=== PATIENT | male | born 1995 | race Two or more races ===

== ENCOUNTER 2025-02-02 20:27 | Inpatient (IN) | payer MEDICAID ==
[~2025-02-02] VITALS: Ht 177.8 cm; Wt 135.0 kg
--- NOTE | 2025-02-02 22:09 | ED.PDOC ---
GI ASSESSMENT HPI Comments 29 year old male presents to the ED with a chief complaint of abdominal pain onset today (02/02/25) around 15:00. Patient states around 15:00 he began experiencing epigastric pain, described as "knot" sensation as well as nausea/vomiting. PMHx colon and liver cancer, had chemo on Friday at [facility] (formerly [facility]), oncologist is Dr. Gann. Patient took Tylenol for pain, no improvement. Denies chest pain, shortness of breath, diarrhea, headache, dizziness, cough, congestion. No other symptoms or modifying factors present at this time. Chief Complaint: Abdominal Pain Time Seen by MD: 22:00 Reviewed Notes: Medications, Allergies Allergies: Coded Allergies: NO KNOWN ALLERGIES (Unverified , 02/02/25) Information Source: Patient Mode of Arrival: Ambulatory Timing: Hours Duration: Since onset Prehospital treatment: Pain Meds (tylenol) Quality: Aching, Sharp Severity: Moderate Recent: Other (chemo) Recent Hx of: Other (chemo) Pain Location: Epigastric Modifying Factors: Nothing Associated sign and symptoms: Nausea, Vomiting, Abdominal Pain Past Medical History PAST MEDICAL HISTORY: Cancer (colon and live) Surgical History: Denies all surgeries Family History Family History: Reviewed,noncontributory to illness, No family hx of Cancer, No family hx of DM, No family hx of Heart brandon, No family hx of HTN, No family hx ofKidney brandon, No family hx of Liver brandon, No family hx of Lung brandon, No family hx of Stroke Social History Smoker: Non-Smoker Alcohol: Denies ETOH Use Drugs: Denies Drug Use Lives In: Home Constitutional: denies: chills, diaphoresis, fatigue, fever, malaise, sweats, weakness, others EENTM: denies: blurred vision, double vision, ear bleeding, ear discharge, ear drainage, ear pain, ear ringing, eye pain, eye redness, hearing loss, mouth pain, mouth swelling, nasal discharge, nose bleeding, nose congestion, nose pain, photophobia, tearing, throat pain, throat swelling, voice changes, others Respiratory: denies: cough, hemoptysis, orthopnea, SOB at rest, shortness of breath, SOB with excertion, stridor, wheezing, others Cardiovascular: denies: chest pain, dizzy spells, diaphoresis, Dyspnea on exertion, edema, irregular heart beat, left arm pain, lightheadedness, palpitations, PND, syncope, others Gastrointestinal: reports: abdominal pain, nausea, vomiting; denies: abdomen distended, blood streaked bowels, constipated, diarrhea, dysphagia, difficulty swallowing, hematemesis, melena, poor appetite, poor fluid intake, rectal bleeding, rectal pain, others Genitourinary: denies: burning, dysuria, flank pain, frequency, hematuria, incontinence, penile discharge, penile sore, pain, testicle pain, testicle swelling, urgency, others Neurological: denies: dizziness, fainting, headache, left sided numbness, left sided weakness, numbness, paresthesia, pre-existing deficit, right sided numbness, right sided weakness, seizure, speech problems, tingling, tremors, weakness, others Musculoskeletal: denies: back pain, gout, joint pain, joint swelling, muscle pain, muscle stiffness, neck pain, others Integumetry: denies: bruises, change in color, change in hair/nails, dryness, laceration, lesions, lumps, rash, wounds, others Allergic/Immunocompromised: denies: Difficulty Healing, Frequent Infections, Hives, Itching, others Hematologic/Lymphatic: denies: anemia, blood clots, easy bleeding, easy bruis ing, swollen glands, others Endocrine: denies: excessive hunger, excessive sweating, excessive thirst, exc essive urination, flushing, intolerance to cold, intolerance to heat, unexplained weight gain, unexplained weight loss, others Psychiatric: denies: anxiety, bipolar disorder, depression, hopeless, panic disorder, schizophrenia, sleepless, suicidal, others All Other Systems: Reviewed and Negative Physical Exam General Appearance: No Apparent Distress, Normal HEENT: Normal ENT Inspection, Pharynx Normal, TMs Normal Neck: Full Range of Motion, Non-Tender, Normal, Normal Inspection Respiratory: Chest Non-Tender, Lungs Clear, No Accessory Muscle Use, No Respiratory Distress, Normal Breath Sounds Cardiovascular: No Edema, No JVD, No Murmur, No Gallop, Normal Peripheral Pulses, Regular Rate/Rhythm Breast Exam: Deferred Gastrointestinal: No Organomegaly, Non Tender, No Pulsatile Mass, Normal Bowel Sounds, Soft Genitalia: Deferred Pelvic: Deferred Rectal: Deferred Extremities: No calf tenderness, Normal capillary refill, Normal inspection, Normal range of motion, Non-tender, No pedal edema Musculoskeletal : Apperance: Normal Neurologic: Alert, tailer out II-XII nml as Tested, No Motor Deficits, Normal Affect, Normal Mood, No Sensory Deficits Cerebellar Function: Normal Reflexes: Normal Skin: Dry, Normal Color, Warm Lymphatic: No Adenopathy Was a procedure done? Was a procedure done?: No GI differential Dx Differential Diagnosis: Appendicitis, Cholangitis, Cholecystitis, Gastritis/PUD, Gastroenteritis, Inflammatory BD, Urolithiasis, Dehydration, Electrolyte Imbalance X-Ray, Labs, Meds, VS Vital Signs Date Time Temp Pulse Resp B/P (MAP) Pulse Ox O2 Delivery O2 Flow Rate FiO2 02/03/25 01:27 98.2 69 13 134/87 (103) 98 98.2 02/03/25 01:08 70 13 134/87 02/03/25 00:38 87 12 161/98 02/03/25 00:30 Room Air* 0 21 02/03/25 00:30 97.9 87 16 161/98 (119) 97 97.9 02/02/25 20:54 98.0 78 18 111/93 (99) 99 98.0 Lab Test 02/03/25 00:20 02/02/25 22:09 Range/Units Lactic Acid Level 3.5 *H 3.7 *H 0.4-2.0 mmol/L White Blood Count 6.0 4.4-10.8 10^3/uL Red Blood Count 5.61 4.5-5.90 10^6/uL Hemoglobin 15.4 13.5-17.5 g/dL Hematocrit 45.6 41.0-53.0 % Mean Corpuscular Volume 81.2 80.0-100.0 fL Mean Corpuscular Hemoglobin 27.4 L 28.0-32.0 pg Mean Corpuscular Hemoglobin Concent 33.7 32.0-36.0 g/dL Red Cell Distribution Width 19.0 H 11.8-14.3 % Platelet Count 307 140-450 10^3/uL Mean Platelet Volume 7.6 6.9-10.8 fL Neutrophils (%) (Auto) 83.8 H 37.0-80.0 % Lymphocytes (%) (Auto) 8.4 L 10.0-50.0 % Monocytes (%) (Auto) 7.5 0.0-12.0 % Eosinophils (%) (Auto) 0.0 0.0-7.0 % Basophils (%) (Auto) 0.3 0.0-2.0 % Neutrophils # (Auto) 5.0 1.6-8.6 10 ^3/uL Lymphocytes # (Auto) 0.5 0.4-5.4 10 ^3/uL Monocytes # (Auto) 0.4 0-1.3 10 ^3/uL Eosinophils # (Auto) 0 0-0.8 10 ^3/uL Basophils # (Auto) 0 0-0.2 10 ^3/uL Nucleated Red Blood Cells 0.1 % Sodium Level 137 136-145 mmol/L Potassium Level 3.4 L 3.5-5.1 mmol/L Chloride Level 104 98-107 mmol/L Carbon Dioxide Level 20 20-31 mmol/L Anion Gap 13 5-15 Blood Urea Nitrogen 9 9-23 mg/dL Creatinine 0.94 0.700-1.30 mg/dL Glomerular Filtration Rate Calc 112 >90 mL/min BUN/Creatinine Ratio 9.6 L 10.0-20.0 Serum Glucose 176 H 74-106 mg/dL Calcium Level 10.5 H 8.7-10.4 mg/dL Total Bilirubin 1.2 H 0.2-1.0 mg/dL Aspartate Amino Transferase (AST) 55 H 13-40 U/L Alanine Aminotransferase (ALT) 82 H 7-40 U/L Alkaline Phosphatase 140 H 46-116 U/L Total Protein 7.9 5.7-8.2 g/dL Albumin 5.0 H 3.2-4.8 g/dL Lipase 313 H 12-53 U/L Current Medications Medications (Trade) Dose Ordered Sig/Ita Route Start Time Stop Time Status Last Admin Sodium Chloride 1,000 ml @ 1,000 mls/hr Q1H ONCE IV 02/02/25 22:15 02/02/25 23:14 DC 02/03/25 00:40 Ondansetron HCl (Zofran) 4 mg ONCE ONCE IV 02/02/25 22:15 02/02/25 22:16 DC 02/03/25 00:37 Morphine Sulfate 4 mg ONCE ONCE IV 02/02/25 22:15 02/02/25 22:16 DC 02/03/25 00:38 Time of 1ST Reevaluation: 22:30 Reevaluation 1ST: Unchanged Patient Education/Counseling: Diagnosis, Treatment, Prognosis Family Education/Counseling: No Family Present Additional Information The following tests were ordered, and results were reviewed by me: CBC, CMP, LA W/ REFLEX, LIPASE, UA, CT AB PEL WITH IV CON I reviewed and agreed with the following test results read by other providers: CT AB PEL WITH IV CON I discussed treatment and results with medical personnel and: patient Comprehensive systems review obtained and negative except for what is stated in the HPI. Departure 1 Departure Time of Disposition: 02:06 (Patient presented with abdominal pain that was concerning for possible appendicits, gastritis, cholecystitis, colitis, gastroenteritis, sbo, or orther possible surgical emergency. Data: 1. I ordered and reviewed the result of at least 3 labs including a CBC, BMP, and Urinalysis. 2. I independently interpreted the following tests: CT Abdoment and Pelvis is concerning for duodenitis.Risk:This patient has a high risk of morbidity due to further diagnostic testing or treatment and may suffer from an acute abdominal process disorder. Workup reveals duodenitis and possibly worsening malignancy and patient should be admitted for further workup. and possible expert consultation. Patient is not septic we will empirically cover patient with antibiotics for possible duodenitis.) Impression: Primary Impression: Duodenitis Additional Impressions: Intractable abdominal pain Liver cancer Qualified Codes: C22.9 - Malignant neoplasm of liver, not specified as primary or secondary Colon cancer Qualified Codes: C18.9 - Malignant neoplasm of colon, unspecified Disposition: 09 ADMITTED INPATIENT Admit to: Med Surg Condition: Serious Critical Care Note Critical Care Time?: Yes Critical care comment: Intractable abdominal pain Authorized and Performed by: Marycruz Chaudhari MD Total critical care time: Approximately 38 minutes Due to a high probability of clinically significant, life threatening deterioration, the patient required my highest level of preparedness to intervene emergently and I personally spent this critical care time directly and personally managing the patient. This critical care time included obtaining a history; examining the patient; pulse oximetry; ordering and review of studies; arranging urgent treatment with development of a management plan; evaluation of patient's response to treatment; frequent reassessment; and, discussions with other providers. This critical care time was performed to assess and manage the high probability of imminent, life-threatening deterioration that could result in multi-organ failure. It was exclusive of separately billable procedures and treating other patients and teaching time. Please see my other sections and the rest of the note for further information on patient assessment and treatment. Stability Stability form required: No I personally scribed for MARYCRUZ CHAUDHARI MD ([email or web address]) on 02/02/25 at 22:09. Electronically submitted by Olimpia Rooney ([email or web address]). I personally scribed for MARYCRUZ CHAUDHARI MD ([email or web address]) on 02/02/25 at 22:17. Electronically submitted by Olimpia Rooney ([email or web address]). MARYCRUZ CHAUDHARI MD Feb 02, 2025 22:09
[2025-02-02 22:18] LABS: Basophils # (auto) 0 10 ^3/uL (0-0.2); Basophils % (auto) 0.3 % (0.0-2.0); Eosinophils # (auto) 0 10 ^3/uL (0-0.8); Hematocrit 45.6 % (41.0-53.0); Hemoglobin 15.4 g/dL (13.5-17.5); Lymphocytes # (auto) 0.5 10 ^3/uL (0.4-5.4); Lymphocytes % (auto) 8.4 % (10.0-50.0); Mean Corpuscular Hemoglobin 27.4 pg (28.0-32.0); Mean Corpuscular Hgb Conc. 33.7 g/dL (32.0-36.0); Mean Corpuscular Volume 81.2 fL (80.0-100.0); Monocytes # (auto) 0.4 10 ^3/uL (0-1.3); Monocytes % (auto) 7.5 % (0.0-12.0); Neutrophils % (auto) 83.8 % (37.0-80.0); Nucleated Red Blood Cells % 0.1 %; Platelet Count (auto) 307 10^3/uL (140-450); Red Blood Cells 5.61 10^6/uL (4.5-5.90)
[2025-02-02 22:41] LABS: Anion Gap 13 (5-15); BUN/Creatinine Ratio 9.6 (10.0-20.0); Chloride 104 mmol/L (98-107); Sodium 137 mmol/L (136-145); Total Protein 7.9 g/dL (5.7-8.2)
[2025-02-02 23:02] LABS: Alanine Aminotransferase 82 U/L (7-40); Alkaline Phosphatase 140 U/L (46-116); Aspartate Aminotransferase 55 U/L (13-40); Bilirubin, Total 1.2 mg/dL (0.2-1.0); Blood Urea Nitrogen 9 mg/dL (9-23); Calcium 10.5 mg/dL (8.7-10.4); Carbon Dioxide 20 mmol/L (20-31); Glucose 176 mg/dL (74-106); Lactic Acid w/Reflex 3.7 mmol/L (0.4-2.0); Potassium 3.4 mmol/L (3.5-5.1)
[2025-02-02 23:15] LABS: Lipase 313 U/L (12-53)
[2025-02-03] MEDS: ONDANSETRON HCL 4 MG/2 ML VIAL IV ONE ×2 (00:37→04:05)
[2025-02-03] MEDS: MORPHINE SULFATE 4 MG/ML SYR/VIAL IV ONE (00:38)
[2025-02-03] MEDS: SODIUM CHLORIDE 0.9% 1,000 ML IV ONE ×3 (00:40→05:30)
[2025-02-03] MEDS: IOHEXOL 300 MG/ML 100ML BOTTLE IJ ONE (01:17)
[2025-02-03 01:20] VITALS: PULSE 69; RESP 13; O2SAT 98
--- NOTE | 2025-02-03 01:36 | DVH ---
Exam: CT CT AB PEL WITH IV CON ONLY History: abdominal pain, colon and liver ca COMPARISON: None Technique: Multidetector spiral CT of the abdomen and pelvis was performed from lung bases to pubic s ymphysis. Intravenous contrast was administered during this examination. Portal venous imaging was obtained. Axial, coronal and sagittal multiplanar reformats were performed by the technologist on a separate workstation. Radiation Dose : 1. Abdomen/Pelvis: CTDIvol 26.3 mGy, DLP 1739 mGy*cm. CONTRAST: Type of contrast: Omnipaque 350 Contrast injected: 100 ml Findings: Lung Bases: No acute or significant lung base finding. Normal heart size. No pleural or pericardial effusion. Liver: Diffuse steatosis. Postsurgical changes are seen in the right hepatic lobe. Questionable mass is seen in the hepatic segment 4A/B which measures up to 2.8 cm. Gallbladder and Biliary Tree: Status post cholecystectomy. Spleen: Unremarkable Pancreas: The pancreas is normal in appearance without focal lesions or abnormal enhancement. Adrenal Glands: Unremarkable Kidneys: No hydronephrosis. Bladder: Unremarkable Bowel: Mild wall thickening is seen in the duodenum with adjacent fat stranding, possibly related to duodenitis. No evidence of bowel obstruction. Normal appendix is visualized in the right lower quadr ant without findings of appendicitis. Ascites: Absent Lymphadenopathy: No mesenteric, retroperitoneal or periportal lymphadenopathy. Abdominal Wall and Mesentery: Prominent fat containing ventral hernia in the midline abdomen.. Vasculature: The visualized abdominal aorta is normal in size and caliber. Abdominal and pelvic vess els demonstrate normal enhancement. Pelvic Organs: Unremarkable Musculoskeletal: No aggressive focal bony lesions, acute fractures or dislocation. IMPRESSION: 1. Mild wall thickening is seen in the duodenum with adjacent fat stranding, possibly related to duod enitis. 2. Questionable mass is seen in the hepatic segment 4A/B which measures up to 2.8 cm. Consider triple phase abdominal CT for further characterization. 3. Postoperative changes are seen in the right hepatic lobe. Radiation optimization: All CT scans at this facility use at least one of these dose optimization ruth ann hniques: automated exposure control mA and/or kV adjustment per patient size (includes targeted exam s where dose is matched to clinical indication) or iterative reconstruction.
[2025-02-03 02:22] LABS: Urine Bacteria None Seen /hpf (None Seen)
[2025-02-03 03:17] LABS: Urine Amorphous Crystal FEW /hpf (None Seen); Urine Blood Negative /uL (Negative); Urine Clarity Ex.Turbid (Clear); Urine Color Light-Brown (Yellow); Urine Protein, UAD Negative (Negative); Urine Specific Gravity 1.034 (1.001-1.035); Urine Squamous Epithelial Cell None Seen /hpf (<5); Urine Urobilinogen Normal (Negative); Urine pH 7.5 (5.0-9.0)
[2025-02-03 03:20] LABS: Urine WBC < 1 /HPF (0-3)
[2025-02-03] MEDS: CEFEPIME 2GM/50ML NS 50 ML IV ONE (04:05)
[2025-02-03] MEDS ORDERED: ACETAMINOPHEN 325 MG TAB PO PRN (04:15)
--- NOTE | 2025-02-03 04:26 | DVHHPRES ---
History of Present Illness Resident Creating Document: JOYCELYN ROSALES RESIDENT History of Present Illness Patient is a 29-year-old male with past medical history of colon and liver cancer diagnosed in 2023 s/p colectomy and liver resection in May 2024 at [facility] with Dr. Gann, who comes in due to acute intractable abdominal pain. According to the patient, yesterday he received his chemotherapy which is currently ongoing via his Port-A-Cath scheduled to end at 11:00 a.m. on 02/03/2025. Around 3:00 p.m. yesterday he started experiencing abdominal pain which was 3/10 at the time of onset and progressively worsening, he describes the pain as a not like twisting pain worsened with hiccuping without any relieving factors. Denies similar symptoms of abdominal pain before in the past. Pain is associated with nausea and vomiting. Patient has had many episodes of vomiting, he notes usually has vomiting when he receives his chemotherapy but abdominal pain is in new. On review of systems he is complaining of nausea and diarrhea, 4-5 bowel movements today. Past Medical History colon and liver cancer diagnosed in 2023 s/p colectomy and liver resection in May 2024 at [facility] with Dr. Gann Past Surgical History Colectomy, partial liver resection right hepatic lobe in May 2024 at [facility]. Past Social History Smoking: Denies Alcohol: Occasionally Drugs: Uses marijuana daily except on days when he is receiving chemotherapy Allergy: Denies Home medication: Zofran, Compazine, doxycycline, steroids Review of Systems Constitutional: No: Fever, Chills, Sweats, Weakness, Malaise, Other Eyes: No: Pain, Vision change, Conjunctivae inflammation, Eyelid inflammation, Other, Redness ENT: No: Ear pain, Ear discharge, Nose pain, Nose discharge, Nose congestion, Mouth pain, Mouth swelling, Throat pain, Throat swelling, Other Respiratory: No: Cough, Dry, Shortness of breath, SOB with excertion, Wheezing, Hemoptysis, Pleuritic Pain, Sputum, Wheezing, Other Cardiovascular: No: Chest Pain, Palpitations, Orthopnea, Paroxysmal Noc. Dyspnea, Edema, Lt Headedness, Other Gastrointestinal: Nausea, Vomiting, Abdominal Pain, Diarrhea; No: Constipation, Melena, Hematochezia, Other Genitourinary: No Dysuria, No Frequency, No Incontinence, No Hematuria, No Retention, No Other Musculoskeletal: No: other, neck pain, shoulder pain, arm pain, back pain, hand pain, leg pain, foot pain Skin: No: Rash, Lesions, Jaundice, Bruising, Other Neurological: No: Weakness, Numbness, Incoordination, Change in speech, Confusion, Seizures, Other Allergies: Coded Allergies: NO KNOWN ALLERGIES (Unverified , 02/02/25) Exam Vital Signs Vital Signs Date Time Temp Pulse Resp B/P (MAP) Pulse Ox O2 Delivery O2 Flow Rate FiO2 02/03/25 01:27 98.2 69 13 134/87 (103) 98 98.2 02/03/25 00:30 Room Air* 0 21 General Appearance: Alert, Oriented X3, Cooperative, mild distress, Other (Actively vomiting at the time of my assessment) HEENT: Atraumatic, PERRLA, EOMI, Other (Dry mucous membrane) Respiratory: Clear to auscultation, Normal air movement Cardiovascular: Regular rate, Normal S1, Normal S2, No murmurs Abdominal: Normal bowel sounds, Soft, Other (Midepigastric tenderness to pa lpation) Extremities: No edema, Normal pulses, No tenderness/swelling Skin: No significant lesion Neuro: Normal speech, Strength at 5/5 X4 ext, Sensation intact Psych/Mental Status: Mental status NL, Mood NL Labs/Xrays Labs Test 02/03/25 02:00 02/03/25 00:20 02/02/25 22:09 Range/Units Urine Color Light-brown Yellow Urine Clarity Ex.turbid Clear Urine pH 7.5 5.0-9.0 Urine Specific [place] 1.034 1.001-1.035 Urine Protein Negative Negative Urine Ketones 2+ H Negative Urine Blood Negative Negative /uL Urine Nitrite Negative Negative Urine Bilirubin Negative Negative Urine Urobilinogen Normal Negative mg/dL Urine Leukocyte Esterase Negative Negative /uL Urine RBC 1 0 - 3 /hpf Urine Microscopic WBC < 1 0-3 /HPF Urine Squamous Epithelial Cells None seen <5 /hpf Urine Amorphous Crystals Few None Seen /hpf Urine Bacteria None seen None Seen /hpf Urine Glucose 1+ H Normal mg/dL Lactic Acid Level 3.5 *H 0.4-2.0 mmol/L White Blood Count 6.0 4.4-10.8 10^3/uL Red Blood Count 5.61 4.5-5.90 10^6/uL Hemoglobin 15.4 13.5-17.5 g/dL Hematocrit 45.6 41.0-53.0 % Mean Corpuscular Volume 81.2 80.0-100.0 fL Mean Corpuscular Hemoglobin 27.4 L 28.0-32.0 pg Mean Corpuscular Hemoglobin Concent 33.7 32.0-36.0 g/dL Red Cell Distribution Width 19.0 H 11.8-14.3 % Platelet Count 307 140-450 10^3/uL Mean Platelet Volume 7.6 6.9-10.8 fL Neutrophils (%) (Auto) 83.8 H 37.0-80.0 % Lymphocytes (%) (Auto) 8.4 L 10.0-50.0 % Monocytes (%) (Auto) 7.5 0.0-12.0 % Eosinophils (%) (Auto) 0.0 0.0-7.0 % Basophils (%) (Auto) 0.3 0.0-2.0 % Neutrophils # (Auto) 5.0 1.6-8.6 10 ^3/uL Lymphocytes # (Auto) 0.5 0.4-5.4 10 ^3/uL Monocytes # (Auto) 0.4 0-1.3 10 ^3/uL Eosinophils # (Auto) 0 0-0.8 10 ^3/uL Basophils # (Auto) 0 0-0.2 10 ^3/uL Nucleated Red Blood Cells 0.1 % Sodium Level 137 136-145 mmol/L Potassium Level 3.4 L 3.5-5.1 mmol/L Chloride Level 104 98-107 mmol/L Carbon Dioxide Level 20 20-31 mmol/L Anion Gap 13 5-15 Blood Urea Nitrogen 9 9-23 mg/dL Creatinine 0.94 0.700-1.30 mg/dL Glomerular Filtration Rate Calc 112 >90 mL/min BUN/Creatinine Ratio 9.6 L 10.0-20.0 Serum Glucose 176 H 74-106 mg/dL Calcium Level 10.5 H 8.7-10.4 mg/dL Total Bilirubin 1.2 H 0.2-1.0 mg/dL Aspartate Amino Transferase (AST) 55 H 13-40 U/L Alanine Aminotransferase (ALT) 82 H 7-40 U/L Alkaline Phosphatase 140 H 46-116 U/L Total Protein 7.9 5.7-8.2 g/dL Albumin 5.0 H 3.2-4.8 g/dL Lipase 313 H 12-53 U/L Assessment/Plan Assessment/Plan Acute intractable abdominal pain Rule out pancreatitis, elevated lipase Duodenitis, infectious versus inflammatory Diarrhea possibly due to inflammation versus chemotherapy Dehydration due to above Lactic acidosis due to above Intractable nausea and vomiting - CT abdomen pelvis: Mild wall thickening is seen in the duodenum with adjacent fat stranding, possibly related to duodenitis. Questionable mass is seen in the hepatic segment 4A/B which measures up to 2.8 cm. Consider triple phase abdominal CT for further characterization. Postoperative changes are seen in the right hepatic lobe. - ceftriaxone, IV metronidazole - IV Zofran as needed - NPO - IV NS 1 L bolus x3 - stool occult blood, stool bacterial culture, stool WBC, stool C diff History of colon and liver cancer s/p colectomy and liver resection Immunocompromised, currently on chemotherapy Possible hepatic mass on CT abdomen pelvis Receiving chemotherapy via Port-A-Cath, scheduled to end at 11:00 a.m. on 02/03/2025 - monitor Marijuana use Obesity, class 3 - counseled PUD prophylaxis: protonix 40mg DVT prophylaxis: Levonox 40mg Goals of care: Full code, discussed for >16 minutes on 02/03/2025 Plan discussed with patient Plan discussed with Dr. Clark Plan discussed with: Patient, Other (RN) My Orders Orders - JOYCELYN ROSALES RESIDENT Procedure Category Date Status Time Electrocardigram EKG 02/03/25 Logged 03:39 Admit ADMIT 02/03/25 Verified 04:14 Allergies SILVIA 02/03/25 Verified 04:14 Code Status CODE 02/03/25 Verified 04:14 Acetaminophen Tablet PHA 02/03/25 Verified (Tylenol Tablet) 04:15 Ondansetron Hcl PHA 02/03/25 Verified (Zofran) 04:15 Enoxaparin Sodium PHA 02/03/25 Verified (Lovenox) 10:00 Npo (Nothing By DIET 02/03/25 Verified Mouth) Diet Breakfast Condition: Unstable SILVIA 02/03/25 Verified 04:14 Notify Md Of Changes SILVIA 02/03/25 Verified From Base 04:14 Ceftriaxone Ivpb PHA 02/03/25 Verified Rocephin 09:00 Ceftriaxone Ivpb PHA 5/1/25 Verified Rocephin 04:15 Date of Service: February 03, 2025 Billing Provider: LEONIDAS CLARK MD Common Visit Codes: [id number] INP/OBS CARE (HIGH) JOYCELYN ROSALES RESIDENT February 03, 2025 04:26
--- NOTE | 2025-02-03 04:39 | ECG ---
[facility] Test Date: 2025-02-03 Test Time: 04:32:02 Pat Name: CARI HERRON Department: ED Room: [address] [place] [address] A Gender: M Airline Captain: MICHELLE : 1995 Requested By: JOYCELYN ROSALES Order Number: [id number] Reading MD: Nikita Varela Measurements Intervals [place] Rate: 91 P: 40 KS: 160 QRS: 72 QRSD: 102 T: 55 QT: 378 QTc: 466 Interpretive Statements Sinus rhythm Borderline ST elevation, anterolateral leads Electronically Signed On 02-03-2025 8:38:37 PDT by Nikita Varela Please click the below link to view image of tracing.
[2025-02-03 05:19] LABS: Basophils # (auto) 0 10 ^3/uL (0-0.2); Basophils % (auto) 0.2 % (0.0-2.0); Eosinophils # (auto) 0 10 ^3/uL (0-0.8); Hematocrit 40.2 % (41.0-53.0); Hemoglobin 13.8 g/dL (13.5-17.5); Lymphocytes # (auto) 0.6 10 ^3/uL (0.4-5.4); Lymphocytes % (auto) 9.1 % (10.0-50.0); Mean Corpuscular Hemoglobin 27.3 pg (28.0-32.0); Mean Corpuscular Hgb Conc. 34.2 g/dL (32.0-36.0); Mean Corpuscular Volume 79.9 fL (80.0-100.0); Monocytes # (auto) 0.6 10 ^3/uL (0-1.3); Monocytes % (auto) 8.7 % (0.0-12.0); Neutrophils # (auto) 5.2 10 ^3/uL (1.6-8.6); Platelet Count (auto) 266 10^3/uL (140-450); Red Blood Cells 5.04 10^6/uL (4.5-5.90); Red Cell Distribution Width 18.8 % (11.8-14.3); White Blood Cell 6.3 10^3/uL (4.4-10.8)
[2025-02-03 05:20] LABS: Lactic Acid w/Reflex 3.2 mmol/L (0.4-2.0)
--- NOTE | 2025-02-03 05:53 | DVH ---
CHEST RADIOGRAPH Indication: cough Technique: Single frontal view of the chest was obtained Comparison: None FINDINGS: Lines and Tubes: There is a right infusion catheter with its tip terminating in the superior cavoatri al junction. Lungs: No focal consolidation. Pleura: No effusion. No pneumothorax. Cardiomediastinal contours: Unremarkable Bones: No acute osseous abnormality. IMPRESSION: 1. No acute cardiopulmonary disease.
[2025-02-03 06:05] LABS: COVID19 ANTIGEN SOFIA FIA NEGATIVE (NEGATIVE)
[2025-02-03 06:06] LABS: Rapid Influenza A Negative (Negative); Rapid Influenza B Negative (Negative)
[2025-02-03] MEDS: PROCHLORPERAZINE EDISYLATE 5 MG/ML 2ML VIAL IV ONE (06:11)
[2025-02-03 06:16] LABS: Albumin 4.3 g/dL (3.2-4.8); Anion Gap 10 (5-15); BUN/Creatinine Ratio 10.8 (10.0-20.0); Calcium 9.1 mg/dL (8.7-10.4); Carbon Dioxide 22 mmol/L (20-31); Potassium 3.7 mmol/L (3.5-5.1); Sodium 139 mmol/L (136-145); Total Protein 6.7 g/dL (5.7-8.2)
[2025-02-03 06:17] LABS: Bilirubin, Total 0.9 mg/dL (0.2-1.0)
[2025-02-03 06:18] LABS: Alanine Aminotransferase 71 U/L (7-40); Alkaline Phosphatase 118 U/L (46-116); Aspartate Aminotransferase 46 U/L (13-40); Blood Urea Nitrogen 8 mg/dL (9-23); Chloride 107 mmol/L (98-107); Glucose 153 mg/dL (74-106)
[2025-02-03] MEDS: cefTRIAXone 1GM/50ML D5W 50 ML IV ONE (07:58)
[2025-02-03] MEDS: metroNIDAZOLE 500MG/100ML 100 ML IV ONE (07:58)
[2025-02-03] MEDS ORDERED: cefTRIAXone 1GM/50ML D5W 50 ML IV ONE (08:00)
[2025-02-03] MEDS: cefTRIAXone 1GM/50ML D5W 50 ML IV SCH (08:18)
[2025-02-03] MEDS: VANCOMYCIN 1GM/200ML PM 200 ML IV ONE (08:26)
[2025-02-03] MEDS ORDERED: VANCOMYCIN 1GM/200ML PM 200 ML IV ONE (09:00)
[2025-02-03] MEDS ORDERED: metroNIDAZOLE 500MG/100ML 100 ML IV ONE (10:00)
[2025-02-03] MEDS: ENOXAPARIN SOD 40 MG/0.4 ML SYRINGE SC SCH (10:33)
[2025-02-03] MEDS: PANTOPRAZOLE 40 MG/10 ML VIAL INJ IV SCH (10:33)
--- NOTE | 2025-02-03 12:24 | DVHPNRES ---
Progress Note Date Seen: February 03, 2025 Resident Creating Document: LITZY BERRY RESIDENT Has the PT tested + for MRSA If YES, has PT been informed?: No Medical Necessity Reason Pt with a Central, PICC or Fol: No Medical Necessity Reason History of Present Illness Patient is a 29-year-old male with past medical history of colon and liver cancer diagnosed in 2023 s/p colectomy and liver resection in May [address] [facility] with [address] Gann, who comes in due to acute intractable abdominal pain. According to the patient, yesterday he received his chemotherapy which is currently ongoing via his Port-A-Cath scheduled to end at 11:00 a.m. on 02/03/2025. Around 3:00 p.m. yesterday he started experiencing abdominal pain which was 3/10 at the time of onset and progressively worsening, he describes the pain as a not like twisting pain worsened with hiccuping without any relieving factors. Denies similar symptoms of abdominal pain before in the past. Pain is associated with nausea and vomiting. Patient has had many episodes of vomiting, he notes usually has vomiting when he receives his chemotherapy but abdominal pain is in new. On review of systems he is complaining of nausea and diarrhea, 4-5 bowel movements today. Past Medical History: colon and liver cancer diagnosed in 2023 s/p colectomy and liver resection in May [address] [facility] with [address] Gann Past Surgical History: Colectomy, partial liver resection right hepatic lobe in May 2024 at [facility]. Past Social History: Smoking: Denies, Alcohol: Occasionally,Drugs: Uses marijuana daily except on days when he is receiving chemotherapy Allergy: Denies Home medication: Zofran, Compazine, doxycycline, steroids PN: Further notes from the patient's medical records reads " he has ongoing stage IV left sided colon adenocarcinoma with metastasis to the liver, He underwent colonoscopy on 11/11/2023 due to abdominal pain and was found to have a partially circumferential, large fungating, friable ulcerating mass proximal to the rectosigmoid. Patient was transferred to [facility] and under went NAC FOLFOX from 12/2023-07/29/2024. On 05/07/2024 he had hepatectomy, cholecystectomy pressure colectomy. The patient was initiated on a surveillance unfortunately abdominal abdominopelvic scan on September revealed interval development of numerous hepatic mass metastasis the patient was then re- initiated on FOLFIRI ( leucovorin calcium (folinic acid), fluorouracil, and irinotecan hydrochloride) on 10/19/2024. His oncology and surgical team are considering surgery, for the enlarging hepatic masses. However, they are concerned about his weight. He has been advised to loss some weight prior to the surgery. He is currently on cycle 6 of FOLFIRI/Panitumumab".Patient mentioned that he breakout in rashes on his face when he uses the doxycycline. Patient presented to the ED yesterday due to intractable abdominal pain associated nausea and vomiting making it difficult for him to keep anything down. Patient described the pain as a twisting knob that progressively became worse without any relieving factors. Patient is currently receiving chemotherapy via Port-A-Cath. He denies fever, chills, shortness of breath. His abdominal symptoms could be due to the steroid he is taking he can cause gastric irritation, the chemotherapy that he is currently on, or the doxycycline which can cause GI irritation. His CT abdomen revealed mild wall thickening is seen in the duodenum with adjacent fat stranding, possibly related to duodenitis. Subjective Review of Systems Constitutional: Denies fever no chills no feeling of malaise, facial acne HEENT: Denies headache, ear pain, ear discharges, conjunctivitis, nasal discharge throat pain Cardiovascular: Denies chest pain, palpitation, orthopnea, PND, or pedal edema Respiratory: Denies shortness of breath, cough cough, sputum production, hemoptysis, GI: abdominal pain, nausea, vomiting; Denies diarrhea, hematemesis, hematochezia, : Denies frequency, urgency, hematuria, Endocrine: Denies unintentional weight gain or weight loss, feeling of hot flashes, Carrillo: Denies easy bruising, bleeding disorders, epistaxis Musculoskeletal: Denies joint pains, muscle aches Psych: No evidence of depression, pati, suicidal ideation Objective vital signs Vital Sign Date Time Temp Pulse Resp B/P (MAP) Pulse Ox O2 Delivery O2 Flow Rate FiO2 02/03/25 10:30 98.7 70 21 118/66 (83) 91 98.7 02/03/25 10:22 Room Air* 0 21 Total Intake and Output 02/02/25 02/02/25 02/03/25 15:00 23:00 07:00 Intake Total 3025.0 ml Output Total 1400 ml Balance 1625.0 ml medications Current Medications Medications Dose Ordered Sig/Ita Route Start Time Stop Time Status Last Admin Dose Admin Acetaminophen 325 mg Q4HP PRN PO 02/03/25 04:15 Ondansetron HCl 4 mg Q4HP PRN IV 02/03/25 04:15 Enoxaparin Sodium 40 mg DAILY SC 02/03/25 10:00 02/03/25 10:33 40 MG Ceftriaxone Sodium 50 ml @ 100 mls/hr DAILY@09 IV 02/03/25 09:00 Metronidazole 100 ml @ 100 mls/hr Q8HR IV 02/03/25 14:00 Pantoprazole Sodium 40 mg DAILY IV 02/03/25 10:00 02/03/25 10:33 40 MG Examination General Appearance: Alert, Oriented X3, Cooperative, Mild acute distress, Obesity, rashes on his face HEENT: Atraumatic, PERRLA, EOMI, Mucous membrane moist/pink Respiratory: Clear to auscultation, Normal air movement Cardiovascular: Regular rate, Normal S1, Normal S2, No murmurs, no chest wall tenderness Abdominal: Distention from obesity, tenderness, bowel sounds present, no scars noted Extremities: No clubbing, No cyanosis, No edema, Normal pulses, No tenderness/swelling Skin: No rashes, No breakdown, No significant lesion Neuro: Normal gait, Normal speech, Strength at 5/5 X4 ext, Normal tone, Sensation intact, Cranial nerves 3-12 NL, Reflexes 2+ Psych/Mental Status: Mental status NL, Mood NL laboratory and microbiology Laboratory Tests 02/03/25 04:57 02/03/25 04:30 Test 02/03/25 04:30 Range/Units Serum Glucose 153 H 74-106 mg/dL Problem List/Assessment/Plan Problem List/Assessment/Plan Assessment/Plan Acute intractable abdominal pain -->likely due to chronic steroid use -->could be due to chemotherapy side effects --> likely doxycycline --> CT abdomen pelvis: Mild wall thickening is seen in the duodenum with adjacent fat stranding, possibly related to duodenitis --> Pepcid, maalox Acne --> facial rash --> Doxycycline Duodenitis, infectious versus inflammatory --> CT abdomen pelvis: Mild wall thickening is seen in the duodenum with adjacent fat stranding, possibly related to duodenitis --> Ceftriaxone, IV metronidazole --> Clear liquid Chronic pancreatitis --> Elevated lipase --> No abdominal tenderness of palpation Dehydration due to above due to nausea and vomiting --> fluid 500ml --> Lactic acidosis due to above --> IV Zofran as needed --> IV NS 1 L bolus x3 Obesity, class 3 --> BMI: 43 --> counseled on weight loss Stage IV left sided colon adenocarcinoma with metastasis to the liver --> Immunocompromised --> currently on chemotherapy ( FOLFIRI), via Port-A-Cath, stopped infusion at 11;00AM today --> Follows up with oncologist at [facility] Rule out C.diff --> stool occult blood, stool bacterial culture, stool WBC, stool C diff History of colon and liver cancer s/p colectomy and liver resection Possible hepatic mass on CT abdomen pelvis Marijuana use Goal of care discussed for 16 minutes. Full code Case and plan discussed + Dr. Espino Plan discussed with: Patient Date of Service: February 03, 2025 Billing Provider: JAQUELIN ESPINO MD Common Visit Codes: [id number] INP/OBS CARE(HIGH) LITZY BERRY RESIDENT February 03, 2025 12:24 JAQUELIN ESPINO MD February 04, 2025 19:24
[2025-02-03] MEDS: SODIUM CHLORIDE 0.9% 500 ML IV SCH (12:41)
[2025-02-03] MEDS: FAMOTIDINE (10MG/ML) 2ML VL IV ONE (12:43)
[2025-02-03] MEDS: metroNIDAZOLE 500MG/100ML 100 ML IV SCH (14:33)
[2025-02-03 16:41] VITALS: BP 127/74; PULSE 73; RESP 20; RESP 73; TEMP 97.8; O2SAT 94; O2SAT 96; O2SAT 98
[2025-02-03] MEDS ORDERED: MAALOX PLUS or MAALOX 30 ML PO PRN (19:15)
[2025-02-03 20:00] VITALS: PULSE 64; RESP 18
[2025-02-03 21:00] VITALS: BP 117/71; PULSE 64; TEMP 98
[2025-02-03] MEDS: FAMOTIDINE (10MG/ML) 2ML VL IV SCH (21:14)
[2025-02-03] MEDS: MAALOX PLUS or MAALOX 30 ML PO ONE (21:15)
[2025-02-04] MEDS: ONDANSETRON HCL 4 MG/2 ML VIAL IV PRN (00:36)
[2025-02-04 05:00] VITALS: BP 117/59; PULSE 74; RESP 17; O2SAT 97
[2025-02-04 06:59] LABS: Chloride 105 mmol/L (98-107); Sodium 140 mmol/L (136-145)
[2025-02-04 07:00] LABS: Anion Gap 9 (5-15); Carbon Dioxide 26 mmol/L (20-31)
[2025-02-04 07:01] LABS: Calcium 9.6 mg/dL (8.7-10.4)
[2025-02-04 07:05] LABS: BUN/Creatinine Ratio 8.4 (10.0-20.0)
[2025-02-04 07:07] LABS: Blood Urea Nitrogen 7 mg/dL (9-23); Glucose 111 mg/dL (74-106); Potassium 2.9 mmol/L (3.5-5.1)
[2025-02-04 08:00] VITALS: PULSE 95; RESP 18; O2SAT 100
[2025-02-04 09:00] VITALS: BP 116/76; PULSE 95; RESP 18; TEMP 98.1; O2SAT 100
[2025-02-04] MEDS: POTASSIUM CHL 20MEQ/50ML 50 ML IV SCH (11:39)
[2025-02-04] MEDS: POTASSIUM CHLORIDE 60 MEQ, LIDOCAINE 1% (LOCAL ANESTH.) 6 ML in SODIUM CHL 0.9% 500 ML IV ONE (12:15)
[2025-02-04 13:00] VITALS: BP 124/77; PULSE 86; RESP 16; TEMP 97.5; O2SAT 99
[2025-02-04 17:00] VITALS: BP 109/70; PULSE 97; RESP 17; TEMP 98.3; O2SAT 98
[2025-02-04 18:31] VITALS: BP 116/76; PULSE 95; RESP 18; TEMP 98.1; O2SAT 100
--- NOTE | 2025-02-04 18:31 | DVHDSRES ---
Discharge Summary Date of Admission Resident Creating Document: VIKTORIALITZY SHIPMAN RESIDENT February 03, 2025 at 04:14 Date of Discharge: February 04, 2025 Admitting Diagnosis Intractable nausea and vomiting Labs/Diagnostic Data: PATIENT: CARI HERRONT: [id number] UNIT: [id number] : 1995 LOC: OVERFLOW ROOM / BED: [facility] / A AGE / SEX: 29 / M ADM STATUS: ADM IN SERVICE [id number] ORDERING PHYSICIAN: JOYCELYN ROSALES PROCEDURE(s): CXR1 - CHEST XRAY 1 VIEW REASON: cough ORDER NUMBER(s): [id number], ACCESSION NUMBER(s): [id number] CHEST RADIOGRAPH Indication: cough Technique: Single frontal view of the chest was obtained Comparison: None FINDINGS: Lines and Tubes: There is a right infusion catheter with its tip terminating in the superior cavoatrial junction. Lungs: No focal consolidation. Pleura: No effusion. No pneumothorax. Cardiomediastinal contours: Unremarkable Bones: No acute osseous abnormality. IMPRESSION: 1. No acute cardiopulmonary disease. ATED BY: JAIRON CHERY MD DICTATED DATE/TIME: 02/03/25 0550 PATIENT: CARI HERRONT: [id number] UNIT: [id number] : 1995 LOC: ER ROOM / BED: / AGE / SEX: 29 / M ADM STATUS: REG ER SERVICE [id number] ORDERING PHYSICIAN: MARYCRUZ CEBALLOS MD PROCEDURE(s): ABPLIV - CT AB PEL WITH IV CON ONLY REASON: abdominal pain, colon and liver ca ORDER NUMBER(s): [id number], ACCESSION NUMBER(s): [id number] Exam: CT CT AB PEL WITH IV CON ONLY History: abdominal pain, colon and liver ca COMPARISON: None Technique: Multidetector spiral CT of the abdomen and pelvis was performed from lung bases to pubic symphysis. Intravenous contrast was administered during this examination. Portal venous imaging was obtained. Axial, coronal and sagittal multiplanar reformats were performed by the technologist on a separate workstation. Radiation Dose : 1. Abdomen/Pelvis: CTDIvol 26.3 mGy, DLP 1739 mGy*cm. CONTRAST: Type of contrast: Omnipaque 350 Contrast injected: 100 ml Findings: Lung Bases: No acute or significant lung base finding. Normal heart size. No pleural or pericardial effusion. Liver: Diffuse steatosis. Postsurgical changes are seen in the right hepatic lobe. Questionable mass is seen in the hepatic segment 4A/B which measures up to 2.8 cm. Gallbladder and Biliary Tree: Status post cholecystectomy. Spleen: Unremarkable Pancreas: The pancreas is normal in appearance without focal lesions or abnormal enhancement. Adrenal Glands: Unremarkable Kidneys: No hydronephrosis. Bladder: Unremarkable Bowel: Mild wall thickening is seen in the duodenum with adjacent fat stranding, possibly related to duodenitis. No evidence of bowel obstruction. Normal appendix is visualized in the right lower quadrant without findings of appendicitis. Ascites: Absent Lymphadenopathy: No mesenteric, retroperitoneal or periportal lymphadenopathy. Abdominal Wall and Mesentery: Prominent fat containing ventral hernia in the midline abdomen.. Vasculature: The visualized abdominal aorta is normal in size and caliber. Abdominal and pelvic vessels demonstrate normal enhancement. Pelvic Organs: Unremarkable Musculoskeletal: No aggressive focal bony lesions, acute fractures or dislocation. IMPRESSION: 1. Mild wall thickening is seen in the duodenum with adjacent fat stranding, possibly related to duodenitis. 2. Questionable mass is seen in the hepatic segment 4A/B which measures up to 2.8 cm. Consider triple phase abdominal CT for further characterization. 3. Postoperative changes are seen in the right hepatic lobe. Radiation optimization: All CT scans at this facility use at least one of these dose optimization techniques: automated exposure control mA and/or kV adjustment per patient size (includes targeted exams where dose is matched to clinical indication) or iterative reconstruction. ATED BY: TEOFILO GODINEZ MD DICTATED DATE/TIME: 02/03/25 0134 Laboratory Results Test 02/04/25 17:13 02/04/25 05:30 02/04/25 05:05 02/03/25 19:59 Potassium Level 3.8 mmol/L (3.5-5.1) Stool Occult Blood Negative (Negative) Stool Occult Blood Sample #3 (Negative) Stool for White Cells None seen Sodium Level 140 mmol/L (136-145) Chloride Level 105 mmol/L (98-107) Carbon Dioxide Level 26 mmol/L (20-31) Anion Gap 9 (5-15) Blood Urea Nitrogen 7 mg/dL (9-23) Creatinine 0.83 mg/dL (0.700-1.30) Glomerular Filtration Rate Calc 121 mL/min (>90) BUN/Creatinine Ratio 8.4 (10.0-20.0) Serum Glucose 111 mg/dL (74-106) Calcium Level 9.6 mg/dL (8.7-10.4) Lactic Acid Level 1.7 mmol/L (0.4-2.0) Test 02/03/25 05:01 02/03/25 04:57 02/03/25 04:30 02/03/25 02:00 Influenza Type A Antigen Negative (Negative) Influenza Type B Antigen Negative (Negative) SARS-CoV-2 Antigen (Rapid) Negative (NEGATIVE) White Blood Count 6.3 10^3/uL (4.4-10.8) Red Blood Count 5.04 10^6/uL (4.5-5.90) Hemoglobin 13.8 g/dL (13.5-17.5) Hematocrit 40.2 % (41.0-53.0) Mean Corpuscular Volume 79.9 fL (80.0-100.0) Mean Corpuscular Hemoglobin 27.3 pg (28.0-32.0) Mean Corpuscular Hemoglobin Concent 34.2 g/dL (32.0-36.0) Red Cell Distribution Width 18.8 % (11.8-14.3) Platelet Count 266 10^3/uL (140-450) Mean Platelet Volume 7.7 fL (6.9-10.8) Neutrophils (%) (Auto) 82.0 % (37.0-80.0) Lymphocytes (%) (Auto) 9.1 % (10.0-50.0) Monocytes (%) (Auto) 8.7 % (0.0-12.0) Eosinophils (%) (Auto) 0.0 % (0.0-7.0) Basophils (%) (Auto) 0.2 % (0.0-2.0) Neutrophils # (Auto) 5.2 10 ^3/uL (1.6-8.6) Lymphocytes # (Auto) 0.6 10 ^3/uL (0.4-5.4) Monocytes # (Auto) 0.6 10 ^3/uL (0-1.3) Eosinophils # (Auto) 0 10 ^3/uL (0-0.8) Basophils # (Auto) 0 10 ^3/uL (0-0.2) Nucleated Red Blood Cells 0.0 % Total Bilirubin 0.9 mg/dL (0.2-1.0) Aspartate Amino Transferase (AST) 46 U/L (13-40) Alanine Aminotransferase (ALT) 71 U/L (7-40) Alkaline Phosphatase 118 U/L (46-116) Total Protein 6.7 g/dL (5.7-8.2) Albumin 4.3 g/dL (3.2-4.8) Urine Color Light-brown (Yellow) Urine Clarity Ex.turbid (Clear) Urine pH 7.5 (5.0-9.0) Urine Specific [place] 1.034 (1.001-1.035) Urine Protein Negative (Negative) Urine Ketones 2+ (Negative) Urine Blood Negative /uL (Negative) Urine Nitrite Negative (Negative) Urine Bilirubin Negative (Negative) Urine Urobilinogen Normal mg/dL (Negative) Urine Leukocyte Esterase Negative /uL (Negative) Urine RBC 1 /hpf (0 - 3) Urine Microscopic WBC < 1 /HPF (0-3) Urine Squamous Epithelial Cells None seen /hpf (<5) Urine Amorphous Crystals Few /hpf (None Seen) Urine Bacteria None seen /hpf (None Seen) Urine Glucose 1+ mg/dL (Normal) Test 02/02/25 22:09 Lipase 313 U/L (12-53) Other Laboratory Tests 02/04/25 17:13 02/04/25 05:05 02/03/25 04:57 Brief Hx & Hospital Course: History of Present Illness Patient is a 29-year-old male with past medical history of colon and liver cancer diagnosed in 2023 s/p colectomy and liver resection in May 2024 at [facility] with Dr. Gann, who comes in due to acute intractable abdominal pain. According to the patient, yesterday he received his chemotherapy which is currently ongoing via his Port-A-Cath scheduled to end at 11:00 a.m. on 02/03/2025. Around 3:00 p.m. yesterday he started experiencing abdominal pain which was 3/10 at the time of onset and progressively worsening, he describes the pain as a not like twisting pain worsened with hiccuping without any relieving factors. Denies similar symptoms of abdominal pain before in the past. Pain is associated with nausea and vomiting. Patient has had many episodes of vomiting, he notes usually has vomiting when he receives his chemotherapy but abdominal pain is in new. On review of systems he is complaining of nausea and diarrhea, 4-5 bowel movements today. Past Medical History: colon and liver cancer diagnosed in 2023 s/p colectomy and liver resection in May 2024 at [facility] with Dr. Gann Past Surgical History: Colectomy, partial liver resection right hepatic lobe in May 2024 at [facility]. Past Social History: Smoking: Denies, Alcohol: Occasionally,Drugs: Uses marijuana daily except on days when he is receiving chemotherapy Allergy: Denies Home medication: Zofran, Compazine, doxycycline, steroids Brief Hospital course Patient came into the ED due to intractable abdominal pains. Patient described the pain as a twisting knob that progressively became worse without any relieving factors. Patient is currently receiving chemotherapy via Port-A-Cath. He denies fever, chills, shortness of breath. His abdominal symptoms could be due to the steroid he is taking he can cause gastric irritation, the chemotherapy that he is currently on, or the doxycycline which can cause GI irritation. His CT abdomen revealed mild wall thickening is seen in the duodenum with adjacent fat stranding, possibly related to duodenitis. Of note,Patient has has stage IV left sided colon adenocarcinoma with metastasis to the liver, He underwent colonoscopy on 11/11/2023 due to abdominal pain and was found to have a partially circumferential, large fungating, friable ulcerating mass proximal to the rectosigmoid. Patient was transferred to [facility] and underwent NAC FOLFOX from 12/2023-07/29/2024. On 05/07/2024 he had hepatectomy, cholecystectomy pressure colectomy. The patient was initiated on a surveillance, unfortunately abdominal abdominopelvic scan on September 16, 2024 revealed interval development of numerous hepatic mass metastasis the patient was then re-initiated on FOLFIRI ( leucovorin calcium (folinic acid), fluorouracil, and irinotecan hydrochloride) on 10/19/2024. He is currently on cycle 6 of FOLFIRI/Panitumumab". Patient mentioned that he breakout in rashes on his face when he uses the doxycycline. His GI symptoms could also be due to medications side effects. Today his was low at 2.9. This was replaced on currently is a 3.8. Patient mentioned that he is stable to be discharged we will follow with the saw the patient home to follow up with his PCP and also with the oncologist. Review of Systems Constitutional: Denies fever no chills no feeling of malaise, facial acne HEENT: Denies headache, ear pain, ear discharges, conjunctivitis, nasal discharge throat pain Cardiovascular: Denies chest pain, palpitation, orthopnea, PND, or pedal edema Respiratory: Denies shortness of breath, cough cough, sputum production, hemoptysis, GI: abdominal pain, nausea, vomiting; Denies diarrhea, hematemesis, hematochezia, : Denies frequency, urgency, hematuria, Endocrine: Denies unintentional weight gain or weight loss, feeling of hot flashes, Carrillo: Denies easy bruising, bleeding disorders, epistaxis Musculoskeletal: Denies joint pains, muscle aches Psych: No evidence of depression, pati, suicidal ideation Examination General Appearance: Alert, Oriented X3, Cooperative,Obesity, rashes on his face HEENT: Atraumatic, PERRLA, EOMI, Mucous membrane moist/pink Respiratory: Clear to auscultation, Normal air movement Cardiovascular: Regular rate, Normal S1, Normal S2, No murmurs, no chest wall tenderness Abdominal: Distention from obesity, tenderness, bowel sounds present, no scars noted Extremities: No clubbing, No cyanosis, No edema, Normal pulses, No tenderness/swelling Skin: No rashes, No breakdown, No significant lesion Neuro: Normal gait, Normal speech, Strength at 5/5 X4 ext, Normal tone, Sensation intact, Cranial nerves 3-12 NL, Reflexes 2+ Psych/Mental Status: Mental status NL, Mood NL Diagnoses Acute intractable abdominal pain Acne, facial rash Duodenitis, infectious versus inflammatory Chronic pancreatitis Dehydration due to above due to nausea and vomiting Obesity, class 3, BMI: 43 Stage IV left sided colon adenocarcinoma with metastasis to the liver Immunocompromised History of colon and liver cancer s/p colectomy and liver resection Possible hepatic mass on CT abdomen pelvis Marijuana use Discharge plan Home in stable condition Encouraged adequate hydration follow up at the Discharge clinic in 7 days follow up pcp and oncology Discharge plans discussed with Dr. Tim Condition at Discharge: Good Final Diagnosis/Problems List Acute intractable abdominal pain likely to medication side effects Acne,facial rash Duodenitis, infectious versus inflammatory Chronic pancreatitis Dehydration due to above due to nausea and vomiting Obesity, class 3, BMI: 43 Stage IV left sided colon adenocarcinoma with metastasis to the liver Immunocompromised History of colon and liver cancer s/p colectomy and liver resection Possible hepatic mass on CT abdomen pelvis Marijuana use Discharge Disposition: Home Discharge Instruct/Medications Diet: Regular Activity: No Restrictions, As Tolerated Follow Up/Referral: 7 days Medications: home medicatios Discharge Statement: "Patient was advised to return to the ER or call 911 if any headaches, dizziness, shortness of breath, chest pain, abdominal pain, bleeding, fevers, or worsening of medical condition. Patient was counseled about treatment plan, medications, possible side effects, patientverbalized understanding. All questions were answered to the best of my ability. This discharge took greater then 30 minutes in planning, reviewing documentation, counseling the patient, and discussing with other team members." ASSESSMENT ASSESSMENT Assessment Acute intractable abdominal pain likely to medication side effects Acne,facial rash Duodenitis, infectious versus inflammatory Chronic pancreatitis Dehydration due to above due to nausea and vomiting Obesity, class 3, BMI: 43 Stage IV left sided colon adenocarcinoma with metastasis to the liver Immunocompromised History of colon and liver cancer s/p colectomy and liver resection Possible hepatic mass on CT abdomen pelvis Marijuana use Date of Service: February 04, 2025 Billing Provider: JAQUELIN TIM MD Common Visit Codes: [id number] DISCH DAY >30min LITZY BERRY February 04, 2025 18:31 JAQUELIN TIM MD February 04, 2025 19:34
== END 2025-02-04 18:55 | disposition home or self-care (01) | DRG 251 ==
LOC: ER 20:27 → OVERFLOW 02-03 04:14 → EAST 02-03 16:30
PROVIDERS: ADMIT Student in an Organized Health Care Education/Training Program; ATTEND Emergency Medicine
DX: R10.9 Unspecified abdominal pain (principal); D84.9 Immunodeficiency, unspecified; E87.20 Acidosis, unspecified; C18.9 Malignant neoplasm of colon, unspecified; C78.7 Secondary malignant neoplasm of liver and intrahepatic bile duct; R16.0 Hepatomegaly, not elsewhere classified; E86.0 Dehydration; E66.813 Obesity, class 3; K29.80 Duodenitis without bleeding; Z68.41 Body mass index [BMI] 40.0-44.9, adult; Z20.822 Contact with and (suspected) exposure to COVID-19; F12.90 Cannabis use, unspecified, uncomplicated; L70.9 Acne, unspecified; R21 Rash and other nonspecific skin eruption; K86.1 Other chronic pancreatitis; Y92.89 Other specified places as the place of occurrence of the external cause; T38.0X5A Adverse effect of glucocorticoids and synthetic analogues, initial encounter
CPT/HCPCS: 36415; 71045; 74177; 80048; 80053; 81001; 82270; 83605; 83690; 84132; 85025; 85048; 87040; 87045; 87426; 87427; 87493; 87804; 93005; 99291; G0378; J0692; J2003; J2405; J2470; J3490